=== PATIENT | male | born 1980 | race African-American/Black ===

== ENCOUNTER 2023-02-26 09:59 | Emergency (ER) | payer SELFPAY ==
[~2023-02-26] VITALS: Ht 188 cm; Wt 92.0 kg
[2023-02-26 10:02] VITALS: O2SAT 100
[2023-02-26] MEDS ORDERED: METF-414 MT (10:08)
[2023-02-26 12:40] LABS: BASOPHILS % 0.4 % (0.0-2.0); EOSINOPHILS % 0.2 % (0.0-5.0); HEMATOCRIT. 47.6 % (42.0-52.0); HEMOGLOBIN. 15.4 g/dL (14.0-18.0); LYMPHOCYTES % 21.6 % (20.0-50.0); MEAN CORPUSCULAR HGB CONC 32.4 g/dL (31.0-37.0); MEAN PLATELET VOLUME 11.1 fl (7.4-10.4); MONOCYTES % 5.6 % (2.0-8.0); NEUTROPHILS % 72.2 % (40.0-76.0); PLATELET 223 x1000/uL (130-400); RED BLOOD CELL COUNT 4.81 mill/uL (4.7-6.1); WHITE BLOOD COUNT 12.2 x1000/uL (4.5-11.0)
[2023-02-26] MEDS ORDERED: KETOROLAC 60MG/2ML VIAL IM STA (12:43)
[2023-02-26 13:27] LABS: ALANINE AMINOTRANSFERASE 21 IU/L (10-49); ALBUMIN 4.5 g/dL (3.2-4.8); ASPARTATE AMINOTRANSFERASE 18 IU/L (<34); BILIRUBIN TOTAL 0.6 mg/dL (0.1-1.0); CALCIUM 9.9 mg/dL (8.7-10.4); CARBON DIOXIDE 28 mEq/L (21-32); CHLORIDE 102 mEq/L (98-107); CREATININE 0.8 mg/dL (0.6-1.3); GLUCOSE 277 mg/dL (70-105); POTASSIUM 3.8 mEq/L (3.5-5.1); PROTEIN TOTAL 7.7 g/dL (6.0-8.3); SODIUM 137 mEq/L (136-145); TROPONIN I HIGH SENSITIVITY 5 ng/L (3.0-53); UREA NITROGEN BLOOD 8 mg/dL (9-23)
[2023-02-26 13:38] LABS: CLARITY URINE CLOUDY (CLEAR); COLOR URINE YELLOW (YELLOW); GLUCOSE URINE 3+ (NEGATIVE); KETONES URINE 1+ (NEGATIVE); LEUKOCYTE ESTERASE URINE 1+ (NEGATIVE); NITRITE URINE NEGATIVE (NEGATIVE); OCCULT BLOOD URINE NEGATIVE (NEGATIVE); PROTEIN URINE NEGATIVE (NEGATIVE); SPECIFIC GRAVITY URINE 1.041 (1.005-1.030); UROBILINOGEN URINE 0.2 E.U./dL (0.2-1.0)
[2023-02-26 14:01] LABS: ETHANOL BLOOD < 10 mg/dL (<10)
[2023-02-26] MEDS ORDERED: NAPR-681 PO (14:12)
[2023-02-26] MEDS ORDERED: NITR100C MT (14:12)
[2023-02-26] MEDS ORDERED: CEFTRIAXONE SODIUM 1 G/VIAL IM NR (14:15)
[2023-02-26] MEDS ORDERED: INSULIN REGULAR (HUMULIN R) 300UNITS/3ML VIAL SUBCUT NR (14:15)
[2023-02-26] MEDS ORDERED: LIDOCAINE HCL 1% 20ML VIAL (Pyxis) INJ INFIL NR (14:15)
[2023-02-26 14:42] LABS: BACTERIA URINE 2+; RBC URINE NONE SEEN /hpf (0-2); SQUAMOUS EPITHELIAL CELL URINE 1+ /lpf (RARE/1+); WBC URINE 15-25 /hpf (0-2); YEAST URINE NONE SEEN
[2023-02-26 14:57] VITALS: BP 147/78; PULSE 60; RESP 14; TEMP 98.2
== END 2023-02-26 15:03 ==
LOC: ER 12:52
DX: E11.65 Type 2 diabetes mellitus with hyperglycemia (principal); M79.10 Myalgia, unspecified site; N39.0 Urinary tract infection, site not specified; I10 Essential (primary) hypertension; V49.49XA Driver injured in collision with other motor vehicles in traffic accident, initial encounter; Y93.89 Activity, other specified; Y92.89 Other specified places as the place of occurrence of the external cause; Y99.8 Other external cause status
CPT/HCPCS: 80053; 81003; 80320; 82962; 85025; 87086; 87186; 84484; 87077; 36415; 71045; 93005; 96372; 99285; J0696; J1815; J1885; J3490; Z7610; G0480